=== PATIENT | female | born 1975 | race African-American/Black ===

== ENCOUNTER 2021-05-09 15:07 | Outpatient (RCR) | payer OTHER, SELFPAY ==
[2021-05-07 07:47] LABS: Basophils Percent Auto 0.6 % (0.2-1.2); Eosinophils Absolute Auto 0.2 K/mm3 (0-0.3); Eosinophils Percent Auto 3.3 % (0-4.4); Hematocrit 38.2 % (37.0-47.0); Hemoglobin 12.6 g/dL (12.0-15.0); Immature Granulocyte Absolute 0.01 K/mm3 (0.00-0.031); Immature Granulocyte Percent A 0.2 % (0-0.5); Lymphocytes Absolute Auto 1.96 K/mm3 (0.9-3.2); Lymphocytes Percent Auto 36.4 % (18.3-44.2); Mean Corpuscular Hemoglobin 29.8 pg (26-34); Mean Corpuscular Volume 90.3 fl (80-100); Monocytes Absolute Auto 0.2 K/mm3 (0.1-0.6); Monocytes Percent Auto 4.5 % (2.6-8.5); Platelet Count Result 171 k/mm3 (150-375); Red Blood Count 4.23 M/mm3 (4.2-5.4); Red Cell Distribution Width 15.1 % (11.5-14.5); White Blood Count 5.4 K/mm3 (4.5-10.0)
[2021-05-07 07:59] LABS: Alanine Aminotransferase 8 U/L (4-35); Albumin Level 4.1 g/dL (3.5-5.1); Alkaline Phosphatase 39 U/L (38-126); Anion Gap 4 mmol/L (8-16); Aspartate Amino Transferase 19 U/L (14-36); Bilirubin,Total 0.2 mg/dL (0.2-1.3); Blood Urea Nitrogen 13 mg/dL (7-17); Calcium 8.6 mg/dL (8.4-10.2); Carbon Dioxide 29 mmol/L (22-30); Chloride 106 mmol/L (98-107); Cholesterol 149 mg/dL (0-200); Estimated Glomerular Filt Rate > 60; Glucose 97 mg/dL (65-110); HDL Direct 67 mg/dL; Potassium 3.5 mmol/L (3.4-5.0); Sodium 139 mmol/L (137-145); Triglycerides 91 mg/dL (<150)
[2021-05-07 08:09] LABS: LDL Cholesterol Direct 46 mg/dL
[2021-05-07 09:08] LABS: Vitamin D 25 Hydroxy 15.4 ng/mL
[2021-05-09 16:12] LABS: Creatinine Urine 22.4 mg/dL
[2021-05-09 16:17] LABS: MALB Creatinine Ratio 143.3 mg/g (0-30); Microalbumin Urine Random 32.1 mg/L (0-16.7)
== END 2021-08-05 23:59 | disposition home or self-care (01) ==
LOC: ANHLAB 15:07
PROVIDERS: PCP Internal Medicine; Visit Provider Internal Medicine
DX: E55.9 Vitamin D deficiency, unspecified (principal); E78.2 Mixed hyperlipidemia
CPT/HCPCS: 36415; 80053; 80061; 82043; 82306; 84443; 85025

== ENCOUNTER 2021-11-29 07:31 | Outpatient (CLI) | payer OTHER, SELFPAY ==
--- NOTE | ~2021-11-29 | MM_ITS ---
EXAMINATION: MM screening angie BI w brianne HISTORY: Screening mammogram TECHNIQUE: Craniocaudal and mediolateral oblique 3-D tomosynthesis images were obtained and synthetic 2-D images were generated. CAD analysis was submitted and interpreted. COMPARISON: 08/04/2018 diagnostic left mammogram and limited left breast ultrasound examinations 12/23/2017 diagnostic left mammogram and limited left breast ultrasound 12/17/2017 bilateral screening mammogram BREAST PARENCHYMAL COMPOSITION: There are scattered areas of fibroglandular density. FINDINGS: Interval resolution of small circumscribed mass noted in the lower outer left breast on 11/26. There is no evidence of suspicious mass, calcification, or architectural distortion to sugges t malignancy in either breast. There has been no suspicious interval change. IMPRESSION: 1. No mammographic evidence of malignancy. 2. Recommend routine screening mammography in one year. BI-RADS Category 1: Negative Reviewed, dictated and finalized at location A.
== END 2021-11-29 07:32 | disposition home or self-care (01) ==
PROVIDERS: PCP Internal Medicine; Visit Provider Internal Medicine
DX: Z12.31 Encounter for screening mammogram for malignant neoplasm of breast (principal)
CPT/HCPCS: 77063; 77067

== ENCOUNTER 2023-05-02 08:01 | Outpatient (CLI) | payer OTHER, SELFPAY ==
[2023-05-02 08:37] LABS: Hemoglobin 14.1 g/dL (12.0-15.0); Mean Corpuscular HGB Conc 33.6 g/dl (32-36); Mean Corpuscular Hemoglobin 29.2 pg (26-34); Platelet Count Result 174 k/mm3 (150-375); Red Blood Count 4.83 M/mm3 (4.2-5.4); Red Cell Distribution Width 14.4 % (11.5-14.5); White Blood Count 7.6 K/mm3 (4.5-10.0)
[2023-05-02 08:48] LABS: Alanine Aminotransferase 15 U/L (6-35); Albumin Level 4.6 g/dL (3.5-5.1); Alkaline Phosphatase 50 U/L (38-126); Anion Gap 7 mmol/L (8-16); Aspartate Amino Transferase 24 U/L (14-36); Bilirubin,Total 0.5 mg/dL (0.2-1.3); Blood Urea Nitrogen 10 mg/dL (7-17); Calcium 9.7 mg/dL (8.4-10.2); Carbon Dioxide 26 mmol/L (22-30); Chloride 105 mmol/L (98-107); Cholesterol 200 mg/dL (0-200); Estimated Glomerular Filt Rate > 60; Glucose 116 mg/dL (65-110); HDL Direct 85 mg/dL; Sodium 138 mmol/L (137-145); Triglycerides 71 mg/dL (<150)
[2023-05-02 09:00] LABS: LDL Cholesterol Direct 71 mg/dL
[2023-05-02 09:18] LABS: Thyroid Stimulating Hormone 0.683 uIU/mL (0.465-4.680)
== END 2023-05-02 08:02 | disposition home or self-care (01) ==
LOC: ANHLAB 08:03
PROVIDERS: PCP Nurse Practitioner; Visit Provider Nurse Practitioner
DX: Z00.00 Encounter for general adult medical examination without abnormal findings (principal); E78.5 Hyperlipidemia, unspecified
CPT/HCPCS: 36415; 80053; 80061; 84443; 85027

== ENCOUNTER 2023-07-18 02:06 | Day surgery (SDC) | payer OTHER, SELFPAY ==
[2023-07-01 15:07] VITALS: BMI 31.8
--- NOTE | 2023-07-16 09:15 | SUR.PREOP ---
Patient called regarding upcoming procedure. Reviewed preop instructions, appointment times, and procedure prep.
--- NOTE | 2023-07-17 09:55 | WPDANESEPPF ---
Anes - Initial Pre Proc Eval Procedure: Operation Date: 07/18/23 10:30 Proposed Procedures p Screening Colonoscopy - Mainor Ruiz MD Date/Time: 07/17/23 09:55 Surgeon: Mainor Ruiz MD Pre Op Diagnosis: neoplasm screening Patient Data Age: 48 Gender: F Height: 1.63 m Weight: 84 kg Allergies Allergy/AdvReac Type Severity Reaction Status Date / Time No Known Allergies Allergy Verified 07/18/23 09:35 Home Medications Medication Instructions Recorded Confirmed Type amlodipine 5 mg tablet 5 mg PO DAILY 07/01/23 07/18/23 History Patient hx anesthesia problems: none Family hx anesthesia problems: none Results Review: All pre-operative results and documents have been reviewed as part of the pre-operative evaluation. [facility] Past Medical History Medical History Abnormal mammogram Abnormal urine finding Adult general medical exam Body mass index [BMI] 30.0-30.9, adult (09/11/17) Body mass index [BMI] 31.0-31.9, adult (08/26/16) Body mass index [BMI] 32.0-32.9, adult (11/28/16) Body mass index [BMI] 33.0-33.9, adult (05/27/16) Body mass index [BMI] 34.0-34.9, adult (12/07/15) DUB (dysfunctional uterine bleeding) Encounter for general adult medical examination with abnormal findings Encounter for gynecological examination (general) (routine) without abnormal findings Encounter for other preprocedural examination Essential hypertension Fibroids, intramural Gastroenteritis Hematuria History of anemia Iron deficiency anemia, 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 Menorrhagia with irregular cycle Menorrhagia with regular cycle Muscle strain Obesity (BMI 30.0-34.9) Submucous leiomyoma of uterus Vaginal lesion Surgical History Surgical History Acquired absence of both cervix and uterus History of hysterectomy Family History Family History Mother Asthma Family history of chronic obstructive pulmonary disease Sibling Asthma Father Family history of kidney disease Family history of lung cancer, Onset Age: 61 Grandparent Hypertension Family history of type 2 diabetes mellitus Diabetes mellitus Social History Social History Smoking packs per day: 0.5 Smoking cigarettes per day: 10.0 Years smoked: 20 Smoking pack-years: 10.00 Smoking status: Current every day smoker Tobacco type: cigarettes Smoking end date: 07/28/12 Alcohol intake: current Drinks per week: 2 Alcohol use details: social Substance use: never Substance use type: does not use Living arrangements: with family Spiritual care concerns: No Anes - Eval Final PreProcedure Day of Procedure 07/17/23 09:55 Patient weight: obese Heart: regular rate and rhythm Lungs: clear to auscultation Airway: Mallampati scale class II Neurological: alert and oriented Last oral intake: >/= 8 hours ASA classification: III Emergent: no Anesthetic plan: proceed Anesthesia type and monitoring: general GIVS and standard monitoring Results Review: All pre-operative results and documents have been reviewed as part of the pre-operative evaluation. Informed Consent: The patient's anesthetic plan and its attendant risks and benefits were discussed with the patient/family/POA. Questions were solicited and answers provided to the satisfaction of the patient/family/POA.
[2023-07-18 09:37] VITALS: BP 131/96; PULSE 71; RESP 18; TEMP 36.4; O2SAT 100; BMI 29.9
[2023-07-18] MEDS: LACTATED RINGERS 1,000 ML 150 ML IV CONT (09:39)
--- NOTE | 2023-07-18 10:00 | PM.HPGS ---
History of Present Illness History of Present Illness Consent: Risks, benefits, and alternatives have been discussed and questions answered. Patient agrees to proceed with procedure. Chief complaint: neoplasm screening Narrative: Janell Perez is a 48 year old female here for first screening colonoscopy Review of Systems Constitutional: Constitutional: Denies headache(s) and Denies weakness Eyes: Eyes: Denies blurry vision ENT: Reports Normal hearing present, Denies headache(s) and Denies neck pain Cardiovascular: Cardiovascular: Denies chest pain and Denies dyspnea Respiratory: Respiratory: Denies dyspnea Gastrointestinal: Gastrointestinal: Reports no additional gastrointestinal complaints Genitourinary: Genitourinary: Denies dysuria Musculoskeletal: Musculoskeletal: Denies neck pain Integumentary/Breasts: Skin/Breast: Denies dry skin Neurologic: Reports Normal hearing present, Denies headache(s) and Denies weakness Psychiatric: Psychiatric: Denies anxiety Endocrine: Endocrine: Denies change in body appearance Hematologic/Lymphatic: Hematologic/Lymphatic: Denies easy bleeding Allergic/Immunologic: Allergic/Immunologic: Denies urticaria PMF Past Medical History Medical History Abnormal mammogram Abnormal urine finding Adult general medical exam Body mass index [BMI] 30.0-30.9, adult (09/11/17) Body mass index [BMI] 31.0-31.9, adult (08/26/16) Body mass index [BMI] 32.0-32.9, adult (11/28/16) Body mass index [BMI] 33.0-33.9, adult (05/27/16) Body mass index [BMI] 34.0-34.9, adult (12/07/15) DUB (dysfunctional uterine bleeding) Encounter for general adult medical examination with abnormal findings Encounter for gynecological examination (general) (routine) without abnormal findings Encounter for other preprocedural examination Essential hypertension Fibroids, intramural Gastroenteritis Hematuria History of anemia Iron deficiency anemia, 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 Menorrhagia with irregular cycle Menorrhagia with regular cycle Muscle strain Obesity (BMI 30.0-34.9) Submucous leiomyoma of uterus Vaginal lesion Surgical History Surgical History Acquired absence of both cervix and uterus History of hysterectomy Family History Family History Mother Asthma Family history of chronic obstructive pulmonary disease Sibling Asthma Father Family history of kidney disease Family history of lung cancer, Onset Age: 61 Grandparent Hypertension Family history of type 2 diabetes mellitus Diabetes mellitus Social History Social History Smoking packs per day: 0.5 Smoking cigarettes per day: 10.0 Years smoked: 20 Smoking pack-years: 10.00 Smoking status: Current every day smoker Tobacco type: cigarettes Smoking end date: 07/28/12 Alcohol intake: current Drinks per week: 2 Alcohol use details: social Substance use: never Substance use type: does not use Living arrangements: with family Spiritual care concerns: No Meds Home Medications and Allergies Home Medications Medication Instructions Recorded Confirmed Type amlodipine 5 mg tablet 5 mg PO DAILY 07/01/23 07/18/23 History Allergies Allergy/AdvReac Type Severity Reaction Status Date / Time No Known Allergies Allergy Verified 07/18/23 09:35 Vital Signs Vital Signs - 24 hr 07/18/23 09:37 Temperature 97.6 F Pulse Rate 71 Respiratory Rate 18 Blood Pressure 131/96 H Pulse Oximetry 100 Oxygen Delivery Room Air Exam Const: General: comfortable and no acute distress HENMT: Face/Nose/Sinus: Normal nares present Eyes: General: appearance normal, both eyes and all related structures Neck: Neck: no JVD Resp: Auscultat
[2023-07-18 10:20] VITALS: BP 98/67; PULSE 79; RESP 24; O2SAT 100
[2023-07-18 10:30] VITALS: BP 106/71; PULSE 69; RESP 18; O2SAT 100
[2023-07-18 10:40] VITALS: BP 105/77; PULSE 65; RESP 18; O2SAT 100
== END 2023-07-18 10:48 | disposition home or self-care (01) ==
PROVIDERS: PCP Nurse Practitioner; Visit Provider Internal Medicine Gastroenterology
PROC: 0DJD8ZZ Inspection of Lower Intestinal Tract, Via Natural or Artificial Opening Endoscopic (ICD-10-PCS; CPT 45378; principal; 2023-07-18 10:30)
DX: Z12.11 Encounter for screening for malignant neoplasm of colon (principal); I10 Essential (primary) hypertension; F17.210 Nicotine dependence, cigarettes, uncomplicated; E66.9 Obesity, unspecified; Z68.30 Body mass index [BMI] 30.0-30.9, adult
CPT/HCPCS: 45378; J7120

== ENCOUNTER 2024-05-07 08:11 | Outpatient (CLI) | payer OTHER, SELFPAY ==
[2024-05-07 10:25] LABS: Anion Gap 5 mmol/L (4-12); Blood Urea Nitrogen 13 mg/dL (7-17); Calcium 9.3 mg/dL (8.4-10.2); Carbon Dioxide 28 mmol/L (22-30); Chloride 107 mmol/L (98-107); Estimated Glomerular Filt Rate > 60; Glucose 91 mg/dL (65-110); Potassium 3.9 mmol/L (3.4-5.0); Sodium 140 mmol/L (137-145)
[2024-05-07 11:41] LABS: Hemoglobin A1C 5.5 % (<5.7)
== END 2024-05-07 08:12 | disposition home or self-care (01) ==
PROVIDERS: PCP Nurse Practitioner; Visit Provider Nurse Practitioner
DX: R73.9 Hyperglycemia, unspecified (principal); I10 Essential (primary) hypertension
CPT/HCPCS: 36415; 80048; 83036

== ENCOUNTER 2025-04-27 10:52 | Outpatient (CLI) | payer OTHER, SELFPAY ==
[2025-04-27 11:31] LABS: Add Urine Microscopic? YES; Appearance Urine Cloudy (Clear); Glucose Urine UA Negative (Negative); Leukocyte Esterase Ur 2+ LEU/UL (Negative); Need Manual Microscopic Reviewed; Nitrate Urine Positive (Negative); Non Pathogenic Casts 0-2; Specific Grav Ur 1.023 (1.001-1.035)
--- OUTSIDE RECORDS SUMMARY | 2025-04-27 11:43 | XMS_ITS | Clinical Summary ---
Author Organization [facility] Health Address [address] [place] [address] Care Team Providers Care Supply Chain Planner Name Role Phone Unavailable Primary Care Provider Unavailabl e Social History Tobacco Use Types Packs/Day Years Used Date Smoking Tobacco: Never Assessed Comments Unknown Sex and Gender Information Value Date Recorded Sex Assigned at Not on file Legal Sex Female 8:40 PM PDT Gender Identity Not on file Sexual Orientation Not on file Plan of Treatment Not on file
--- OUTSIDE RECORDS SUMMARY | 2025-04-27 11:43 | XMS_ITS | Encounter Summary ---
Author Organization [facility] Health Address [address] [place] [address] Care Team Providers Care Global Program Director Name Role Phone Unavailable Primary Care Provider Unavailabl e Prior Encounters Date Type Department Care Team Description 08/16/2019 Converted CPS Chart Documents [facility] [address] [place] [address] <No scans attached> 08/16/2019 Converted 13x Documents [facility] [address] [place] [address] <No scans attached> Plan of Treatment Not on file Procedures Procedure Name Priority Date/Time Associated Diagnosis Comments 15 EXTRACTION, ERUPTED TOOTH REQUIRING REMOVAL OF BONE AND/OR SECTIONING OF TOOTH Routine 10/17/2020 2:00 AM CDT 15 LIMITED ORAL EVALUATION - PROBLEM FOCUSED Routine 10/17/2020 2:00 AM CDT PANORAMIC RADIOGRAPHIC IMAGE Routine 10/17/2020 2:00 AM CDT ADDITIONAL X-RAY Routine 10/17/2020 2:00 AM CDT SINGLE X-RAY Routine 10/17/2020 2:00 AM CDT Visit Diagnoses Not on file
--- OUTSIDE RECORDS SUMMARY | 2025-04-27 11:43 | XMS_ITS | Clinical Summary ---
Author Organization [facility] Address [address] [place] [address] Care Team Providers Care Engineering Specialist Technician Name Role Phone Unknown, Notinfile Primary Care Provider Unavail able Allergies No known active allergies Medications meclizine (ANTIVERT) 25 mg tablet Take 1 tablet (25 mg total) by mouth 3 (three) times a day as needed for dizziness 30 tablet 3 Active amLODIPine (NORVASC) 10 mg tablet Take 1 tablet (10 mg total) by mouth daily 30 tablet 3 Active Medical History Medical History Date Comments Hypertension Social History Tobacco Use Types Packs/Day Years Used Date Smoking Tobacco: Never Assessed Comments No Sex and Gender Information Value Date Recorded Sex Assigned at Not on file 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 Gender Identity Not on file Sexual Orientation Not on file Obstetrics History Last Filed Vital Signs Vital Sign Reading Time Taken Comments Blood Pressure 126/85 04/18/2023 5:00 AM CDT Pulse 56 04/18/2023 5:00 AM CDT Temperature 36.8 C (98.2 F) 04/17/2023 7:51 PM CDT Respiratory Rate 14 04/18/2023 5:01 AM CDT Oxygen Saturation 100% 04/18/2023 5:00 AM CDT Inhaled Oxygen Concentration - - Weight 82.7 kg (182 lb 5.1 oz) 04/17/2023 7:51 P M CDT Height - - Body Mass Index - - Plan of Treatment Health Maintenance Due Date Last Done Comments Breast Cancer Screening-Mammogram 1977 Colon Cancer Screening-Colonoscopy 1977 Depression Screening 1977 Hepatitis C Screening 1977 DTaP/Tdap/Td Vaccine (5 - Tdap) 1988 04/21/1987, 05/28/1982, 08/18/1978, Additional history exists Hepatitis B Screening 1995 Regular Well Visit/Exam 18-64 1995 Covid-19 Vaccine ( season) 2025 04/19/2021, 03/29/2021 Influenza Vaccine (#1) 2025 04/27/2018, 2016 Pneumococcal vaccine <65 Aged Out No longer eligible based on patient's age to complete this topic Insurance [facility] C[facility] Care Teams Engineering Specialist Technician Relationship Specialty Start Date End Date Unknown, Notinfile PCP - General 04/17/23
== END 2025-04-27 10:53 | disposition home or self-care (01) ==
PROVIDERS: PCP Internal Medicine; Visit Provider Internal Medicine
DX: R30.0 Dysuria (principal)
CPT/HCPCS: 81001; 87077; 87086; 87186

== ENCOUNTER 2025-05-02 15:29 | Outpatient (CLI) | payer OTHER, SELFPAY ==
--- OUTSIDE RECORDS SUMMARY | 2025-05-02 16:00 | XMS_ITS | Clinical Summary ---
Author Organization [facility] Health Address [address] [place] [address] Care Team Providers Care Elementary Instructional Coach Name Role Phone Unavailable Primary Care Provider [...]
--- OUTSIDE RECORDS SUMMARY | 2025-05-02 16:00 | XMS_ITS | Clinical Summary ---
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 CORE Care Teams Mechanical Inspector Relationship Specialty Start Date End Date Unknown, Notinfile PCP - General 04/17/23
--- OUTSIDE RECORDS SUMMARY | 2025-05-02 16:00 | XMS_ITS | Encounter Summary ---
Author Organization [facility] Health Address [address] [place] [address] Care Team Providers Care Pocketed Spring Assembler Name Role Phone Unavailable Primary Care Provider Unavailabl e Prior Encounters Date Type Department Care Team Description 08/16/2019 Converted CPS Chart Documents [facility] [address] [place] [address] <No scans attached> 08/16/2019 Converted 13x Documents [facility] [address] [place] [address] <No scans attached> Plan of [...]
[2025-05-03 07:09] LABS: FSH 101.0 mIU/mL (.)
== END 2025-05-02 15:30 | disposition home or self-care (01) ==
LOC: ANHLAB 15:34
PROVIDERS: PCP Nurse Practitioner; Visit Provider Obstetrics & Gynecology
DX: N95.1 Menopausal and female climacteric states (principal)
CPT/HCPCS: 83001